=== PATIENT | female | born 1960 | race Caucasian/White ===

== ENCOUNTER 2016-11-13 11:55 | Emergency (ER) | payer OTHER ==
[~2016-11-13] VITALS: Ht 152.4 cm; Wt 121.0 kg
[2016-11-13] MEDS ORDERED: HONEY (13:42)
[2016-11-13] MEDS ORDERED: [UNRECOGNIZED DRUG - OTHER] (13:42)
[2016-11-13 14:25] VITALS: BP 173/93
== END 2016-11-13 14:25 | disposition home or self-care (01) ==
LOC: EME 11:55
DX: Z04.1 Encounter for examination and observation following transport accident (principal); Z04.2 Encounter for examination and observation following work accident
CPT/HCPCS: 99281; 99284